=== PATIENT | male | born 1995 | race Caucasian/White ===

== ENCOUNTER → 2021-10-23 | Outpatient (CLI) | payer BC ==
--- NOTE | 2021-10-23 11:25 | Diagnostic Imaging Report ---
PROCEDURE: MRI right joint upper extremity without contrast. TECHNIQUE: Multiplanar, multisequence non contrast-enhanced MRI of the right upper extremity was accomplished. INDICATION: Pain in the right shoulder chopping wood. COMPARISON: None FINDINGS: No acute fracture seen in the right shoulder. Alignment appears normal. There is no joint effusion. The supraspinatus tendon is intact. The infraspinatus tendon and teres minor tendon are intact. The subscapularis tendon is intact. No focal muscular atrophy is seen. The long head of the biceps tendon is normal in course and signal. The glenoid labrum is suboptimally evaluated in the absence of intra-articular contrast. There is no para labral cyst. The posterior labrum does appear diminutive but no discrete tear is appreciated. The acromion has a curved undersurface. The coracoclavicular and coracoacromial ligaments are intact. There is mild edema in the acromioclavicular joint. No erosion or cortical irregularity is seen in the distal clavicle. No soft tissue masses or fluid collections are seen. There is focal edema in the lateral deltoid. There is no lymphadenopathy. IMPRESSION: 1. Low-grade strain of the lateral right deltoid muscle. 2. No high-grade partial-thickness or full-thickness rotator cuff tear. 3. Mild edema within the acromioclavicular joint, could represent a low-grade sprain. No widening, offset or cortical erosion is seen. Dictated by: Dictated on workstation # [id number]
== END ==
LOC: RAD 09:30
PROVIDERS: ATTEND Nurse Practitioner Family
DX: S46.811A Strain of other muscles, fascia and tendons at shoulder and upper arm level, right arm, initial encounter (principal); X58.XXXA Exposure to other specified factors, initial encounter
CPT/HCPCS: 73221